=== PATIENT | male | born 1995 | race African-American/Black ===

== ENCOUNTER 2017-09-10 21:30 | Emergency (ER) | payer OTHER ==
[2017-09-10 23:23] VITALS: RESP 18
--- NOTE | 2017-09-10 23:27 | EDPHY ---
H & P HPI/ROS: Chief complaint: Right pointer finger laceration History of present illness: 21-year-old male presents to the emergency department for right pointer finger laceration. He lacerated just prior to arrival. Minimal bleeding. Minimal pain. He is still moving the finger well. No report of abnormal coolness or paresthesias in the finger. Immunizations up-to-date. Smoking Status: Never smoked Physical Exam: General: Alert, nontoxic Skin: There is a 2 cm laceration to the side of the right pointer finger. No foreign bodies or deep structures appreciated. Musculoskeletal: Patient is flexing extending his right pointer finger in the DIP, PIP and MCP joint well. Vascular: Capillary refill brisk in the right pointer finger. Neurologic: Sensation intact in the right pointer finger using light touch and two-point discrimination Constitutional: Initial Vital Signs Temperature (C) 37.0 C 09/10/17 21:46 Heart Rate 75 09/10/17 21:46 Respiratory Rate 16 09/10/17 21:46 Blood Pressure 112/59 L 09/10/17 21:46 O2 Sat (%) 95 09/10/17 21:46 O2 Delivery Mode Room Air Allergies/Adverse Reactions: No Known Allergies Allergy (Verified 03/25/15 22:29) Home Medications: Medication Instructions Recorded ALPRAZolam [Xanax] 0.5 mg PO PRN PRN 03/25/15 Escitalopram Oxalate [Lexapro 10 10 mg PO 03/25/15 MG] hydrOXYzine HCL [Hydroxyzine HCl] 25 mg PO 03/25/15 MDM/Departure - MDM Procedures: Procedure: Laceration repair. Verbal consent was obtained from the patient. The 2 cm laceration on the right pointer finger was anesthetized in the usual fashion. The wound was irrigated, draped and explored to its base with a gloved finger. There were no deep structures involved. No tendon injury was identified. The wound was repaired with 5 0 Prolene. The wound repair was simple. The procedure was performed by myself. ED Course/Re-evaluation: Patient seen under the supervision of my secondary supervising physician Dr. Augusto Santos. Patient presents to the emergency department for evaluation of right pointer finger laceration. The finger does appear to be neurovascularly intact. He has good musculoskeletal control. Wound is cleaned , repaired and dressed. Home care is discussed. He is referred to a hand surgeon for recheck. Return precautions are given. Patient voiced understanding and agreement with plan. Differential Diagnosis: Included but not limited to laceration, deep structure injury, foreign body contamination - Depart Disposition: Home, Routine, Self-Care Clinical Impression: Finger laceration Qualifiers: Encounter type: initial encounter Finger: index finger Damage to nail status: without damage Foreign body presence: without foreign body Laterality: right Qualified Code(s): S61.210A - Laceration without foreign body of right index finger without damage to nail, initial encounter Condition: Good Instructions: Care For Your Stitches (ED), Laceration (ED), Acute Wounds (ED) Additional Instructions: Follow-up with a hand doctor for recheck this week Stitches to be removed in 7 days If symptoms worsen or new symptoms develop return to the emergency room for recheck Referrals: Collins Carrion MD [Primary Care Provider] - As per Instructions Sadi Pickard MD [Medical Doctor] - As per Instructions
[2017-09-10 23:32] VITALS: BP 115/72; PULSE 72; TEMP 98.4; O2SAT 94
== END 2017-09-10 23:34 | disposition home or self-care (01) ==
PROC: 0HQFXZZ Repair Right Hand Skin, External Approach (ICD-10-PCS; principal; 2017-09-10)
DX: S61.210A Laceration without foreign body of right index finger without damage to nail, initial encounter (principal); X58.XXXA Exposure to other specified factors, initial encounter